=== PATIENT | male | born 1985 | race Caucasian/White ===

== ENCOUNTER 2019-07-24 06:48 | Outpatient (CLI) | payer SELFPAY ==
[2019-07-24 08:52] LABS: HEMOGLOBIN A1C 5.2 % (4.5-6.2)
[2019-07-24 09:06] LABS: CHOL/HDL RATIO 2.68 (0.00-4.99)
== END 2019-07-24 23:59 | disposition home or self-care (01) ==
LOC: HW HEART 06:48
DX: Z13.6 Encounter for screening for cardiovascular disorders (principal)
CPT/HCPCS: 36415